=== PATIENT | male | born 1950 | race Caucasian/White ===

== ENCOUNTER 2019-02-11 07:17 | Day surgery (SDC) | payer MEDICARE, OTHER ==
[~2019-02-11] VITALS: Ht 223.5 cm; Wt 60.2 kg
[~2019-02-11 07:17] MED LIST: ACET325 PO; ALPR.25 PO; ALPR.5 PO; ALPR1 PO; ATEN25 PO; Aspir 8181 MG PO; Aspirin EC81 MG PO; Ativan1 MG PO; B-1100 MG PO; CHILDREN'S325 MG/10. PO; CHOL10002 PO; CRUTCH2 USE; Carbidopa-Levo1 EAC1 PO; Carbidopa-Levo1 EAC2 PO; Carbidopa-Levo1 EAC4; Carbidopa-Levo1 EACH PO; Colace100 MG PO; DOCU100 PO; FOLI1 PO; HALO.5 PO; HALO2 PO; HYDACE10B PO; HYDACE5 PO; LEVCAR2510 PO; LIDO5TP TOP; LISI5 PO; LORA.5 PO; Metoprolol Succ25 MG PO; Micro-K10 MEQ PO; Norco 10-325 T1 EACH PO; OMEP20ER PO; OXYACE5T PO; Omeprazole20 M1 PO; Prilosec Otc20 MG PO; QUET25 PO; ROPI.25 PO; Super B-50 Com1 EAC1 PO; THIA100 PO; TRAZ50 PO; VICODIN HP 10-1 EACH PO; VITAMIN D31000 UNIT PO
== END 2019-02-11 09:20 | disposition home or self-care (01) ==
LOC: ORSCSDS 07:17
PROVIDERS: Surgery
PROC: 0DJD8ZZ Inspection of Lower Intestinal Tract, Via Natural or Artificial Opening Endoscopic (ICD-10-PCS; principal; 2019-02-11 08:30)
DX: Z12.11 Encounter for screening for malignant neoplasm of colon (principal); Z86.010 Personal history of colon polyps; I10 Essential (primary) hypertension; F41.9 Anxiety disorder, unspecified; G20 Parkinson's disease; E55.9 Vitamin D deficiency, unspecified; F17.210 Nicotine dependence, cigarettes, uncomplicated; Z79.899 Other long term (current) drug therapy
CPT/HCPCS: J2405; J7120

== ENCOUNTER → 2019-04-19 | Outpatient (CLI) | payer MEDICARE, OTHER ==
[2019-04-19 14:21] LABS: Bilirubin, Urine Neg (Neg); Blood, Urine Neg (Neg); Glucose Qualitative, Urine Neg (Neg); Ketones, Urine Neg (Neg); Leukocyte Esterase, Urine Neg (Neg); Nitrite, Urine Neg (Neg); Protein, Urine Neg (Neg); Specific Gravity, Urine 1.015 (1.003-1.022); Urobilinogen, Urine NORM (Normal)
[2019-04-19 14:29] LABS: Appearance, Urine Clear (Clear); Color, Urine Yellow (P-Yellow)
== END | disposition home or self-care (01) ==
LOC: LAB 13:42 → LAB SHORT 13:42
DX: E55.9 Vitamin D deficiency, unspecified (principal); G20 Parkinson's disease; J44.9 Chronic obstructive pulmonary disease, unspecified; F41.9 Anxiety disorder, unspecified; F32.9 Major depressive disorder, single episode, unspecified; I10 Essential (primary) hypertension
CPT/HCPCS: 81003

== ENCOUNTER → 2021-04-18 | Outpatient (CLI) | payer MEDICARE, OTHER | END | disposition home or self-care (01) | LOC: LAB SHORT 18:45 → LAB 18:45 | DX: L08.9 Local infection of the skin and subcutaneous tissue, unspecified (principal) | CPT/HCPCS: 87070; 87075; 87205 ==

== ENCOUNTER → 2021-04-27 | Outpatient (CLI) | payer MEDICARE, OTHER ==
[2021-05-01 10:38] LABS: Stool Occult Blood Guaiac 1 Neg (Neg)
== END ==
LOC: LAB SHORT 12:21 → LAB 12:21
PROVIDERS: Physician Assistant Medical
DX: R63.4 Abnormal weight loss (principal)
CPT/HCPCS: 82270